=== PATIENT | male | born 1960 | race Caucasian/White ===

== ENCOUNTER → 2017-01-26 | Outpatient (CLI) | payer BC ==
[2016-05-17 00:30] VITALS: BP 137/89
[~2017-01-26] MED LIST: IOHEXOL 240 MG/ML 50ML VIAL. ONE; IOHEXOL 300 MG/ML 75 ML VIAL. IV ONE
--- NOTE | 2017-01-26 14:04 | RAD ---
CT of the abdomen with and without contrast, 01/26/2017: History: Right adrenal nodule Imaging was performed prior to and following an IV bolus injection of iodinated contrast material. Portal venous and delayed postcontrast scans were included. Oral contrast material was also given for GI tract opacification. There is a small, smooth right adrenal nodule measuring 18 mm in width. It measured 16 mm on the 05/16/2016 study. On the precontrast scans it demonstrates an internal CT number of approximately 28 Hounsfield units. This value is higher than that of a typical lipid rich adenoma. On the portal venous phase images there is moderate enhancement, most prominent peripherally. The average CT number in this phase is 106 Hounsfield units. On the delayed images there is good washout of contrast from the nodule. The absolute washout was calculated at 65% and the relative washout calculated at 48%. Both of these values are considered highly suggestive of an adrenal adenoma. A tiny 7 mm nodule in the lateral aspect of the right lobe of liver is most likely a cyst. An additional tiny lesion located more inferiorly in the right lobe of the liver is too small to definitively characterize but is also probably a cyst. The liver is otherwise unremarkable. No gallbladder abnormality is seen. There is no evidence of a pancreatic mass. The pancreatic duct in the body of the pancreas is mildly dilated, as previously noted. The spleen is of normal size. A 1.5 cm cyst is present anteriorly in the left kidney. The kidneys are otherwise unremarkable. The left adrenal gland shows no abnormality. The abdominal aorta is of normal caliber. No abdominal adenopathy is seen. The bowel loops show no abnormality. No free fluid is evident in the abdomen. IMPRESSION: 1. Small right adrenal nodule with noncontrast density and washout parameters compatible with a lipid poor adenoma. The fact that it appears to have increased slightly in size since 05/16/2016 is of some concern. CT follow-up is suggested. 2. Probable hepatic and left renal cysts. 3. No acute abdominal abnormality is detected. PQRS Compliance Statement: One or more of the following individualized dose reduction techniques were utilized for this examination: 1. Automated exposure control 2. Adjustment of the mA and/or kV according to patient size 3. Use of iterative reconstruction technique
== END | disposition home or self-care (01) ==
LOC: CT 08:49
PROVIDERS: ATTEND Family Medicine
DX: E27.8 Other specified disorders of adrenal gland (principal); D44.10 Neoplasm of uncertain behavior of unspecified adrenal gland
CPT/HCPCS: 74170; Q9966; Q9967